=== PATIENT | female | born 1990 | race Caucasian/White ===

== ENCOUNTER → 2017-01-07 | Outpatient (CLI) | payer OTHER | LOC: M SMT 10:23 | PROVIDERS: ATTEND Specialist | DX: Z36 Encounter for antenatal screening of mother (principal) ==

== ENCOUNTER → 2017-01-13 | Outpatient (CLI) | payer OTHER ==
--- NOTE | 2017-01-13 16:54 | REP ---
Clinical: Anatomical evaluation. Comparison: None . Findings: Examination demonstrates a single live intrauterine in cephalic presentation. motion is identified by technologist. Placenta is noted anteriorly and grade Z zero without evidence for placenta previa or abruption. Amniotic fluid volume is normal. Cervix measures 3.2 cm in length and appears closed. No evidence for nuchal cord. Gestational age by current measurements 19 weeks 2 days with MARTHA 06/07/2017 . FHR equals 144 beats per minute. BPD 4.6 cm 19 weeks 6 days HC 16.8 19 weeks 3 days AC 14.3 19 weeks 5 days FL 3.0 19 weeks 2 days HL 3.1 20 weeks 0 days HC/AC ratio 1.17 Estimated weight 296 grams ( 52nd percentile). Anatomical assessment demonstrates normal structures including cranium, choroid plexus, cavum, cerebellum/posterior fossa, facial features, lungs, four-chamber heart/ventricular outflow tracts, diaphragm, stomach, cord insertion/three-vessel cord, kidneys/bladder, spine, and extremities. Impression: Single live intrauterine in cephalic presentation. Anatomical assessment is complete and normal. Signed by Brando Sheppard MD 01/13/2017 11:45 A
== END ==
LOC: M SMT 10:51
PROVIDERS: ATTEND Specialist
DX: Z34.82 Encounter for supervision of other normal pregnancy, second trimester (principal); Z36 Encounter for antenatal screening of mother; Z3A.19 19 weeks gestation of pregnancy

== ENCOUNTER → 2017-02-04 | Outpatient (CLI) | payer OTHER ==
[2017-02-04 14:25] LABS: FREE T4 1.07 NG/DL (0.76-1.46)
== END ==
LOC: M SMT 09:27
PROVIDERS: ATTEND Internal Medicine Endocrinology, Diabetes & Metabolism
DX: O99.281 Endocrine, nutritional and metabolic diseases complicating pregnancy, first trimester (principal)

== ENCOUNTER → 2017-03-15 | Outpatient (CLI) | payer OTHER ==
[2017-03-15 14:14] LABS: MEAN CORPUSCULAR HEMOGLOBIN 31.2 pg (27.0-33.0); MEAN CORPUSCULAR HGB CONC 34.2 g/dl (32.0-36.5); MEAN CORPUSCULAR VOLUME 91.3 fl (80.0-96.0); PLATELET COUNT, AUTOMATED 243 10^3/uL (150-450); RED CELL DISTRIBUTION WIDTH 11.8 % (11.5-14.5); WHITE BLOOD COUNT 8.5 10^3/uL (4.0-10.0)
== END ==
LOC: M SMT 09:27
PROVIDERS: ATTEND Obstetrics & Gynecology
DX: Z34.82 Encounter for supervision of other normal pregnancy, second trimester (principal); Z23 Encounter for immunization

== ENCOUNTER → 2017-03-31 | Outpatient (CLI) | payer OTHER ==
[2017-03-31 14:52] LABS: ALBUMIN 2.8 GM/DL (3.2-5.2); ALBUMIN/GLOBULIN RATIO 0.68 (1.00-1.93); ALKALINE PHOSPHATASE 145 U/L (45-117); ALT/SGPT 14 U/L (12-78); AST/SGOT 14 U/L (7-37); BILIRUBIN,DIRECT < 0.1 MG/DL (0.0-0.2); BILIRUBIN,TOTAL 0.3 MG/DL (0.2-1.0); FREE T4 1.18 NG/DL (0.76-1.46); TOTAL PROTEIN 6.9 GM/DL (6.4-8.2)
== END ==
LOC: M SMT 11:33
PROVIDERS: ATTEND Advanced Practice Midwife
DX: R21 Rash and other nonspecific skin eruption (principal); Z23 Encounter for immunization

== ENCOUNTER 2017-04-16 23:03 | Outpatient (CLI) | payer OTHER ==
[~2017-04-16] VITALS: Ht 165.1 cm; Wt 64.3 kg
[2017-04-16 23:18] VITALS: BP 134/84
[2017-04-16] MEDS ORDERED: PRENTAB9 PO (23:29)
[2017-04-16] MEDS ORDERED: LEVO75TA4 PO (23:29)
== END 2017-04-17 00:15 | disposition home or self-care (01) ==
LOC: M LDO 23:03
PROVIDERS: ATTEND Obstetrics & Gynecology
DX: O47.03 False labor before 37 completed weeks of gestation, third trimester (principal); Z3A.32 32 weeks gestation of pregnancy

== ENCOUNTER 2017-04-28 00:33 | Outpatient (CLI) | payer OTHER | END 2017-04-28 02:01 | disposition home or self-care (01) | LOC: M LDO 00:33 | DX: O47.03 False labor before 37 completed weeks of gestation, third trimester (principal); O99.283 Endocrine, nutritional and metabolic diseases complicating pregnancy, third trimester; E03.9 Hypothyroidism, unspecified; Z3A.33 33 weeks gestation of pregnancy; Z79.899 Other long term (current) drug therapy | CPT/HCPCS: 76815 ==

== ENCOUNTER 2017-05-16 19:33 | Inpatient (IN) | payer OTHER ==
[2017-05-16] MEDS: LR 1,000 ML IV ×2 (22:13→23:03)
[2017-05-16 22:22] LABS: HEMATOCRIT 37.1 % (36.0-47.0); HEMOGLOBIN 12.5 g/dl (12.0-16.0); MEAN CORPUSCULAR HEMOGLOBIN 28.9 pg (27.0-33.0); MEAN CORPUSCULAR HGB CONC 33.7 g/dl (32.0-36.5); MEAN CORPUSCULAR VOLUME 85.9 fl (80.0-96.0); PLATELET COUNT, AUTOMATED 227 10^3/uL (150-450); RED BLOOD COUNT 4.32 10^6/uL (4.00-5.40); RED CELL DISTRIBUTION WIDTH 11.4 % (11.5-14.5); WHITE BLOOD COUNT 14.3 10^3/uL (4.0-10.0)
[2017-05-16 22:41] LABS: AMPHETAMINES URINE REFLEX NEGATIVE (NEGATIVE); BARBITURATES URINE REFLEX NEGATIVE (NEGATIVE); BENZODIAZEPINES URINE REFLEX NEGATIVE (NEGATIVE); CANNABINOIDS URINE REFLEX NEGATIVE (NEGATIVE); COCAINE METABOLITE URINE REFLE NEGATIVE (NEGATIVE); METHADONE URINE REFLEX NEGATIVE (NEGATIVE); OPIATES URINE REFLEX NEGATIVE (NEGATIVE); PHENCYCLIDINE URINE REFLEX NEGATIVE (NEGATIVE)
[2017-05-16] MEDS: BICITRA 30ML SOLN UDC PO (23:15)
[2017-05-16] MEDS: CEFAZOLIN SOD 1 GM in APPROPRIATE DILUENT 1 EA IV (23:15)
[2017-05-16] MEDS ORDERED: MORPHINE PRES-FREE INJ 10 MG/10 ML VIAL (J2274) As Ordered (23:37)
[2017-05-16] MEDS ORDERED: OXYTOCIN INJ 10 UNITS/ML VIAL (J2590) As Ordered ×3 (23:38)
[2017-05-17] MEDS ORDERED: METOCLOPRAMIDE INJ 10MG/2ML VIAL (J2765) IV (00:07)
[2017-05-17] MEDS ORDERED: NALOXONE INJ 0.4 MG/1 ML VIAL (J2310) IV ×2 (00:07)
[2017-05-17] MEDS ORDERED: PHENYLephrine HCL 500 MCG/5 ML (100MCG/ML) SYRINGE (J2370) As Ordered (00:08)
[2017-05-17] MEDS ORDERED: ePHEDrine SULFATE 25 MG/5 ML(5MG/ML) SYRINGE As Ordered (00:10)
[2017-05-17] MEDS: LR 1,000 ML IV ×3 (00:53→08:07)
[2017-05-17] MEDS ORDERED: ONDANSETRON 4MG/2ML VIAL (J2405) IV (01:00)
[2017-05-17] MEDS ORDERED: fentaNYL 100 MCG/2 ML INJECTION (J3010) IV (01:00)
[2017-05-17] MEDS ORDERED: DOCUSATE SODIUM 100 MG CAP PO (01:00)
[2017-05-17] MEDS: OXYTOCIN DRIP 30 UNITS in APPROPRIATE DILUENT 1 EA IV (01:00)
[2017-05-17] MEDS ORDERED: KETOROLAC 30 MG/ML VIAL (J1885) IV (01:00)
[2017-05-17 08:00] LABS: HEPATITIS B SURFACE ANTIGEN NEGATIVE (NEGATIVE)
[2017-05-17] MEDS: PRENATAL VITAMINS CHEWABLE TABLET PO (08:07)
[2017-05-17] MEDS: KETOROLAC 30 MG/ML VIAL (J1885) IV ×3 (08:32→20:11)
[2017-05-17] MEDS: LEVOTHYROXINE 75MCG TABLET (0.075MG) PO (10:00)
[2017-05-17] MEDS ORDERED: SLF 3 ML SYR IV (11:30)
[2017-05-17] MEDS: NALBUPHINE HCL 10 MG/ML AMP (J2300) IV ×2 (14:27→20:11)
[2017-05-17] MEDS: SLF 3 ML SYR IV ×2 (14:36→20:12)
[2017-05-17] MEDS: PERCOCET 5MG/325MG TAB PO (20:12)
[2017-05-18] MEDS: KETOROLAC 30 MG/ML VIAL (J1885) IV (02:10)
[2017-05-18] MEDS: LEVOTHYROXINE 75MCG TABLET (0.075MG) PO (05:41)
[2017-05-18] MEDS: SLF 3 ML SYR IV (05:41)
[2017-05-18 07:17] LABS: HEMATOCRIT 21.2 % (36.0-47.0); MEAN CORPUSCULAR HGB CONC 33.5 g/dl (32.0-36.5); MEAN CORPUSCULAR VOLUME 86.5 fl (80.0-96.0); PLATELET COUNT, AUTOMATED 196 10^3/uL (150-450); RED BLOOD COUNT 2.45 10^6/uL (4.00-5.40); RED CELL DISTRIBUTION WIDTH 11.9 % (11.5-14.5); WHITE BLOOD COUNT 11.3 10^3/uL (4.0-10.0)
[2017-05-18 07:22] LABS: HEMOGLOBIN 7.1 g/dl (12.0-16.0)
[2017-05-18] MEDS: RHOGAM 300 MCG (1500 IU) INJ (J2790) IM (07:58)
[2017-05-18] MEDS: MEASLES,MUMPS,RUBELLA VACCINE INJ (MMR-II) (90707) SC (07:59)
[2017-05-18] MEDS: PRENATAL VITAMINS CHEWABLE TABLET PO (08:19)
[2017-05-18] MEDS: IBUPROFEN 800 MG TAB PO ×2 (10:22→18:43)
[2017-05-18] MEDS: PERCOCET 5MG/325MG TAB PO ×4 (10:23→21:28)
[2017-05-19] MEDS: IBUPROFEN 800 MG TAB PO ×2 (02:39→09:33)
[2017-05-19] MEDS: PERCOCET 5MG/325MG TAB PO ×3 (02:39→11:22)
[2017-05-19] MEDS: LEVOTHYROXINE 75MCG TABLET (0.075MG) PO (05:40)
[2017-05-19] MEDS: PRENATAL VITAMINS CHEWABLE TABLET PO (09:32)
== END 2017-05-19 11:45 | disposition home or self-care (01) | DRG 766 ==
LOC: M LDO 19:33 → M OBS 05-17 02:40 → M LDI 21:47
PROVIDERS: Specialist
PROC: 10D00Z1 Extraction of Products of Conception, Low, Open Approach (ICD-10-PCS; principal; 2017-05-16 23:51)
DX: O60.14X0 Preterm labor third trimester with preterm delivery third trimester, not applicable or unspecified (principal); Z3A.36 36 weeks gestation of pregnancy; O34.211 Maternal care for low transverse scar from previous cesarean delivery; Z37.0 Single live birth

== ENCOUNTER → 2017-05-26 | Outpatient (CLI) | payer OTHER ==
[2017-05-26 14:35] LABS: BASO # 0.1 10^3/uL (0.0-0.2); BASO % 0.6 % (0.0-1.0); EOS # 0.4 10^3/uL (0.0-0.50); EOS % 3.5 % (0.0-3.0); HEMATOCRIT 26.1 % (36.0-47.0); HEMOGLOBIN 8.4 g/dl (12.0-16.0); IMMATURE GRANULOCYTE # 0.2 10^3/uL (0-0); IMMATURE GRANULOCYTE % 2.3 % (0-0); LYMPH % 19.6 % (24.0-44.0); MEAN CORPUSCULAR HEMOGLOBIN 28.9 pg (27.0-33.0); MEAN CORPUSCULAR HGB CONC 32.2 g/dl (32.0-36.5); MEAN CORPUSCULAR VOLUME 89.7 fl (80.0-96.0); MONO # 0.8 10^3/uL (0.0-0.8); MONO % 8.2 % (0.0-5.0); NEUTROPHILS # 6.7 10^3/uL (1.8-7.7); NEUTROPHILS % 65.8 % (36.0-66.0); PLATELET COUNT, AUTOMATED 691 10^3/uL (150-450); RED BLOOD COUNT 2.91 10^6/uL (4.00-5.40); RED CELL DISTRIBUTION WIDTH 12.2 % (11.5-14.5); WHITE BLOOD COUNT 10.2 10^3/uL (4.0-10.0)
== END ==
LOC: M SMT 11:15
DX: D64.9 Anemia, unspecified (principal)
CPT/HCPCS: 85025

== ENCOUNTER → 2017-11-24 | Outpatient (CLI) | payer OTHER ==
[2017-11-24 13:08] LABS: BASO # 0.1 10^3/uL (0.0-0.2); BASO % 1.2 % (0.0-1.0); EOS # 0.5 10^3/uL (0.0-0.50); EOS % 6.7 % (0.0-3.0); HEMATOCRIT 40.6 % (36.0-47.0); HEMOGLOBIN 13.7 g/dl (12.0-15.5); IMMATURE GRANULOCYTE % 0.4 % (0-3.0); LYMPH # 2.4 10^3/uL (1.5-6.5); LYMPH % 31.8 % (24.0-44.0); MEAN CORPUSCULAR HEMOGLOBIN 29.6 pg (27.0-33.0); MEAN CORPUSCULAR HGB CONC 33.7 g/dl (32.0-36.5); MEAN CORPUSCULAR VOLUME 87.7 fl (80.0-96.0); MONO # 0.6 10^3/uL (0.0-0.8); MONO % 7.4 % (0.0-5.0); NEUTROPHILS # 3.9 10^3/uL (1.8-7.7); NEUTROPHILS % 52.5 % (36.0-66.0); PLATELET COUNT, AUTOMATED 266 10^3/uL (150-450); RED BLOOD COUNT 4.63 10^6/uL (4.00-5.40); RED CELL DISTRIBUTION WIDTH 12.6 % (11.5-14.5); WHITE BLOOD COUNT 7.5 10^3/uL (4.0-10.0)
[2017-11-24 13:33] LABS: COLLAGEN EPINEPHRINE 123 SECONDS (74-162)
[2017-11-24 14:10] LABS: ALBUMIN 4.3 GM/DL (3.2-5.2); ALKALINE PHOSPHATASE 98 U/L (45-117); ALT/SGPT 18 U/L (12-78); ANION GAP 5 MEQ/L (8-16); AST/SGOT 12 U/L (7-37); BILIRUBIN,TOTAL 0.3 MG/DL (0.2-1.0); BLOOD UREA NITROGEN 8 MG/DL (7-18); CALCIUM LEVEL 9.4 MG/DL (8.5-10.1); CARBON DIOXIDE LEVEL 29 MEQ/L (21-32); CHLORIDE LEVEL 106 MEQ/L (98-107); CREATININE FOR GFR 0.84 MG/DL (0.55-1.30); FREE T4 0.92 NG/DL (0.76-1.46); GLOMERULAR FILTRATION RATE > 60.0 (>60); GLUCOSE, FASTING 86 MG/DL (70-100); POTASSIUM SERUM 5.1 MEQ/L (3.5-5.1); SODIUM LEVEL 140 MEQ/L (136-145); TOTAL PROTEIN 8.2 GM/DL (6.4-8.2)
== END ==
LOC: M SMT 11:45
DX: E06.3 Autoimmune thyroiditis (principal); R53.83 Other fatigue; R23.3 Spontaneous ecchymoses
CPT/HCPCS: 84443

== ENCOUNTER → 2018-04-05 | Outpatient (CLI) | payer OTHER ==
[2018-04-05 19:19] LABS: BASO # 0.1 10^3/uL (0.0-0.2); BASO % 1.2 % (0.0-1.0); EOS # 0.3 10^3/uL (0.0-0.50); EOS % 4.3 % (0.0-3.0); HEMATOCRIT 40.8 % (36.0-47.0); HEMOGLOBIN 13.3 g/dl (12.0-15.5); IMMATURE GRANULOCYTE % 0.3 % (0-3.0); LYMPH # 1.9 10^3/uL (1.5-6.5); LYMPH % 27.1 % (24.0-44.0); MEAN CORPUSCULAR HEMOGLOBIN 29.3 pg (27.0-33.0); MEAN CORPUSCULAR HGB CONC 32.6 g/dl (32.0-36.5); MEAN CORPUSCULAR VOLUME 89.9 fl (80.0-96.0); MONO # 0.6 10^3/uL (0.0-0.8); MONO % 8.2 % (0.0-5.0); NEUTROPHILS % 58.9 % (36.0-66.0); PLATELET COUNT, AUTOMATED 242 10^3/uL (150-450); RED BLOOD COUNT 4.54 10^6/uL (4.00-5.40); RED CELL DISTRIBUTION WIDTH 11.9 % (11.5-14.5); WHITE BLOOD COUNT 6.8 10^3/uL (4.0-10.0)
[2018-04-05 19:23] LABS: FREE T4 1.09 NG/DL (0.76-1.46)
[2018-04-05 21:28] LABS: CHLAMYDIA DNA AMPLIFICATION NEGATIVE (NEGATIVE); GC DNA AMPLIFICATION NEGATIVE (NEGATIVE)
[2018-04-06 10:16] LABS: RUBELLA IgG QUALITATIVE IMMUNE (IMMUNE)
[2018-04-06 10:18] LABS: HBsAg Prenatal NEGATIVE (NEGATIVE)
[2018-04-06 10:46] LABS: HEPATITIS C VIRUS ABY INDEX 0.1 INDEX (<0.8)
[2018-04-06 10:47] LABS: HIV 1&2 SCREEN CENTAUR NEGATIVE (NEGATIVE)
== END ==
LOC: M SMT 10:20
DX: Z36.89 Encounter for other specified antenatal screening (principal)
CPT/HCPCS: 84443

== ENCOUNTER → 2018-04-22 | Outpatient (CLI) | payer OTHER ==
[~2018-04-22] MED LIST: LEVO75TA4 PO; MOTR200T44 PO; OXYC1TAB23 PO; PRENTAB9 PO
--- NOTE | 2018-04-22 09:50 | REP ---
OBSTETRIC SONOGRAPHY: HISTORY: Left lower quadrant pain. Evaluate gestation and ovaries. FINDINGS: Scanning demonstrates a viable single intrauterine gestation in a cephalic lie. heart rate is recorded at 171 beats per minute. [place]-rump length is 42 mm corresponding with a gestational age estimate of 11 weeks 1 day. No subchorionic hemorrhage is seen. Placenta is fundal without evidence of previa. There is a 2.0 cm corpus luteal cyst in the maternal left ovary. Maternal right ovary is unremarkable. No free fluid. IMPRESSION: Viable single intrauterine gestation at 11 weeks 1 day by crown-rump length. MARTHA by today's sonography, November 10, 2018. No significant extrauterine abnormality. No complication identified. Electronically Signed by Wolfgang Damon MD 04/22/2018 10:18 A
== END ==
LOC: M LAB 07:41
PROVIDERS: ATTEND Emergency Medicine
DX: O26.891 Other specified pregnancy related conditions, first trimester (principal); R10.32 Left lower quadrant pain; Z3A.11 11 weeks gestation of pregnancy

== ENCOUNTER → 2018-06-27 | Outpatient (CLI) | payer OTHER ==
--- NOTE | 2018-06-27 09:59 | REP ---
Clinical: Anatomical evaluation. Comparison: None . Findings: Examination demonstrates a single live intrauterine in cephalic presentation. motion is identified by technologist. Placenta is noted posterior and grade grade 1 without evidence for placenta previa or abruption. Amniotic fluid volume is normal. Cervix measures 3.1 cm in length and appears closed. No evidence for nuchal cord. Gestational age by LMP 20 weeks 5 days with MARTHA 11/09/2018 . Gestational age by current measurements 19 weeks 6 days with MARTHA 11/15/2018 . FHR equals 136 beats per minute. BPD 4.8 cm 20 weeks 3 days HC 17.6 cm 20 weeks 0 days AC 14.3 cm 19 weeks 5 days FL 3.2 cm 20 weeks 0 days HL 3.0 cm 19 weeks 6 days HC/AC ratio 1.23 Estimated weight 317 grams (19th percentile). Anatomical assessment demonstrates normal structures including cranium, choroid plexus, cavum, cerebellum/posterior fossa, facial features, lungs, four-chamber heart/ventricular outflow tracts, diaphragm, stomach, cord insertion/three-vessel cord, kidneys/bladder, spine, and extremities. Impression: Single live intrauterine in cephalic presentation demonstrating relatively appropriate interval growth. Estimated weight normal. Anatomical assessment is complete and normal. Electronically Signed by Brando Sheppard MD 06/27/2018 09:51 A
== END ==
LOC: M SMT 08:29
PROVIDERS: ATTEND Advanced Practice Midwife
DX: O34.211 Maternal care for low transverse scar from previous cesarean delivery (principal); Z3A.20 20 weeks gestation of pregnancy

== ENCOUNTER → 2018-08-16 | Outpatient (CLI) | payer OTHER ==
[2018-08-16 14:03] LABS: BASO # 0.1 10^3/uL (0.0-0.2); BASO % 0.7 % (0.0-1.0); EOS # 0.2 10^3/uL (0.0-0.50); EOS % 2.6 % (0.0-3.0); HEMATOCRIT 36.8 % (36.0-47.0); HEMOGLOBIN 12.3 g/dl (12.0-15.5); LYMPH # 1.5 10^3/uL (1.5-6.5); LYMPH % 18.2 % (24.0-44.0); MEAN CORPUSCULAR HEMOGLOBIN 30.4 pg (27.0-33.0); MEAN CORPUSCULAR HGB CONC 33.4 g/dl (32.0-36.5); MEAN CORPUSCULAR VOLUME 90.9 fl (80.0-96.0); MONO # 0.6 10^3/uL (0.0-0.8); MONO % 7.2 % (0.0-5.0); NEUTROPHILS # 5.9 10^3/uL (1.8-7.7); NEUTROPHILS % 70.2 % (36.0-66.0); PLATELET COUNT, AUTOMATED 291 10^3/uL (150-450); RED BLOOD COUNT 4.05 10^6/uL (4.00-5.40); WHITE BLOOD COUNT 8.4 10^3/uL (4.0-10.0)
[2018-08-16 14:13] LABS: FREE T4 0.99 NG/DL (0.76-1.46); THYROID STIMULATING HORMONE 1.85 uIU/ML (0.358-3.740)
== END ==
LOC: M SMT 09:04
PROVIDERS: ATTEND Specialist
DX: O09.212 Supervision of pregnancy with history of pre-term labor, second trimester (principal)

== ENCOUNTER 2018-09-23 17:43 | Outpatient (CLI) | payer OTHER ==
[~2018-09-23] VITALS: Ht 167.6 cm; Wt 61.6 kg
[2018-09-23 17:56] VITALS: BP 121/81
[2018-09-23] MEDS ORDERED: TERBUTALINE SULFATE 1 MG/ML VIAL (J3105) SC ONE ×2 (18:30→22:00)
[2018-09-23] MEDS: LR 1,000 ML IV SCH ×2 (18:44→22:03)
--- NOTE | 2018-09-23 18:45 | IPNPDOC ---
Text Note Date of Service The patient was seen on 09/23/18. NOTE Outpatient 27yo MARTHA 11/09/18. Presents @ 33w2d with complaints of UC though the day despite rest, hydration and position change. hx significant for previous PT delivery x 2 via . Denies bleeding. Appears mildly uncomfortable. UC 4-8 minutes apart FH 145, Cat I SSE cervix visually LTC, bled readily to touch from speculum. No evidence of prior bleeding. Unable to obtain FFN GBS obtained SVE LTC, thinning. Will obtain labs, sono. IV hydration and consult physician with results. VS,Fishbone, I+O VS, Fishbone, I+O Vital Signs Date Time Temp Pulse Resp B/P (MAP) Pulse Ox O2 Delivery O2 Flow Rate FiO2 09/23/18 17:56 97.5 78 18 121/81 (94) Johanne Anders CNM September 23, 2018 18:45
[2018-09-23 18:48] VITALS: BP 131/82
[2018-09-23 19:00] LABS: BASO % 0.4 % (0.0-1.0); EOS # 0.2 10^3/uL (0.0-0.50); EOS % 1.4 % (0.0-3.0); HEMATOCRIT 33.9 % (36.0-47.0); HEMOGLOBIN 11.7 g/dl (12.0-15.5); LYMPH # 2.5 10^3/uL (1.5-6.5); LYMPH % 21.7 % (24.0-44.0); MEAN CORPUSCULAR HEMOGLOBIN 30.4 pg (27.0-33.0); MEAN CORPUSCULAR HGB CONC 34.5 g/dl (32.0-36.5); MEAN CORPUSCULAR VOLUME 88.1 fl (80.0-96.0); MONO # 0.8 10^3/uL (0.0-0.8); NEUTROPHILS # 7.8 10^3/uL (1.8-7.7); NEUTROPHILS % 68.8 % (36.0-66.0); PLATELET COUNT, AUTOMATED 209 10^3/uL (150-450); RED BLOOD COUNT 3.85 10^6/uL (4.00-5.40); WHITE BLOOD COUNT 11.4 10^3/uL (4.0-10.0)
[2018-09-23 19:15] LABS: APPEARANCE, URINE CLOUDY (CLEAR); BACTERIA, URINE AUTO 2+ (NEGATIVE); BILIRUBIN, URINE AUTO NEGATIVE (NEGATIVE); BLOOD, URINE BLOOD NEGATIVE (NEGATIVE); COLOR, URINE YELLOW (YELLOW); GLUCOSE, URINE (UA) AUTO NEGATIVE (NEGATIVE); KETONE, URINE AUTO NEGATIVE (NEGATIVE); LEUKOCYTE ESTERASE, URINE AUTO 2+ (NEGATIVE); MUCUS, URINE SMALL (NEGATIVE); NITRITE, URINE AUTO NEGATIVE (NEGATIVE); PROTEIN, URINE AUTO NEGATIVE (NEGATIVE); RBC, URINE AUTO 4 /HPF (0-3); SPECIFIC GRAVITY URINE AUTO 1.012 (1.002-1.035); SQUAMOUS EPITHELIAL CELL UR AU 30 /HPF (0-6); UROBILINOGEN, URINE AUTO 0.2 mg/dL (0.0-2.0); WBC, URINE AUTO 15 /HPF (0-3)
[2018-09-23 19:20] LABS: INR 0.91; PROTHROMBIN TIME 12.3 SECONDS (12.1-14.4)
[2018-09-23 19:21] LABS: PARTIAL THROMBOPLASTIN TIME 24.3 SECONDS (25.4-37.6)
--- NOTE | 2018-09-23 19:48 | REPVR ---
EXAM: US , Limited EXAM DATE/TIME: 09/23/2018 7:15 PM CLINICAL HISTORY: 27 years old, female; Signs and symptoms; Lmp or gestational age (in weeks): 33w2d; Labor and delivery abnormalities; Pre-term labor; Without delivery; ; Additional info: Threat ptl TECHNIQUE: Imaging protocol: Real-time ultrasound of the maternal uterus with image documentation. Exam focused on the clinical indication. COMPARISON: US OBS SINGLE GEST 06/27/2018 8:39 AM FINDINGS: GESTATION: Gestation: Single fetus. Limited anatomic survey unremarkable. heart rate 147 beats per minute. Presentation: Vertex presentation. Amniotic fluid: Amniotic fluid volume within normal limits. YEMI 13.6 cm. DOPPLER: Umbilical artery Doppler: Umbilical cord Doppler demonstrates peak systolic velocity of 56.3 cm/s, end-diastolic velocity of 21.2 cm/s with a resistive index of 0.62. Three vessel cord. MATERNAL: Cervix: Cervix measures 4.4 cm. No bulging membranes or funneling demonstrated. IMPRESSION: Normal cervix. No bulging membranes or funneling demonstrated. Normal amniotic fluid volume. Electronically signed by: Bobby Barnes On 09/23/2018 19:48:23 PM
[2018-09-23] MEDS ORDERED: AMPICILLIN SOD 2 GM in D5W MINI-BAG PLUS 100 ML IV ONE (20:00)
[2018-09-23 20:03] VITALS: BP 128/70
--- NOTE | 2018-09-23 20:21 | IPNPDOC ---
Text Note Date of Service The patient was seen on 09/23/18. NOTE Reviewed pt status with Dr Sheldon Cat I tracing, irregular UC Sono showing YEMI 13.6 with cervical length 4.4, no funneling Continue IV hydration, IV abx for UTI Betamethasone IM x 2 doses Observe overnight VS,Fishbone, I+O VS, Fishbone, I+O Laboratory Tests 09/23/18 18:40 Red Blood Count 3.85 L, Mean Corpuscular Volume 88.1, Mean Corpuscular Hemoglobin 30.4, Mean Corpuscular Hemoglobin Concent 34.5, Red Cell Distribution Width 11.9, Neutrophils (%) (Auto) 68.8 H, Lymphocytes (%) (Auto) 21.7 L, Monocytes (%) (Auto) 7.0 H, Eosinophils (%) (Auto) 1.4, Basophils (%) (Auto) 0.4, Neutrophils # (Auto) 7.8 H, Lymphocytes # (Auto) 2.5, Monocytes # (Auto) 0.8, Eosinophils # (Auto) 0.2, Basophils # (Auto) 0.0 Vital Signs Date Time Temp Pulse Resp B/P (MAP) Pulse Ox O2 Delivery O2 Flow Rate FiO2 09/23/18 18:48 81 18 131/82 (98) 09/23/18 17:56 97.5 Johanne Anders CNM September 23, 2018 20:21
[2018-09-23] MEDS ORDERED: BETAMETHASONE SOLUSPAN 6MG/ML INJ 5ML (J0702) IM SCH (21:00)
[2018-09-23 21:58] VITALS: BP 127/75
[2018-09-23] MEDS ORDERED: BUTORPHANOL 2 MG/ML INJ (J0595) IV ONE (23:00)
[2018-09-23] MEDS ORDERED: PROMETHAZINE INJ 25 MG/ML VIAL (J2550) IV ONE (23:00)
--- NOTE | 2018-09-23 23:01 | IPNPDOC ---
Text Note Date of Service The patient was seen on 09/23/18. NOTE Continues to be uncomfortable. FH 145, Cat I UC irregular SVE unchanged, moderate texture, LTC, presenting part high Stadol/phenergan for sedation and rest. Reassess with increased complaints. VS,Fishbone, I+O VS, Fishbone, I+O Laboratory Tests 09/23/18 18:40 Red Blood Count 3.85 L, Mean Corpuscular Volume 88.1, Mean Corpuscular Hemoglobin 30.4, Mean Corpuscular Hemoglobin Concent 34.5, Red Cell Distribution Width 11.9, Neutrophils (%) (Auto) 68.8 H, Lymphocytes (%) (Auto) 21.7 L, Monocytes (%) (Auto) 7.0 H, Eosinophils (%) (Auto) 1.4, Basophils (%) (Auto) 0.4, Neutrophils # (Auto) 7.8 H, Lymphocytes # (Auto) 2.5, Monocytes # (Auto) 0.8, Eosinophils # (Auto) 0.2, Basophils # (Auto) 0.0 Vital Signs Date Time Temp Pulse Resp B/P (MAP) Pulse Ox O2 Delivery O2 Flow Rate FiO2 09/23/18 20:03 85 18 128/70 (89) 09/23/18 17:56 97.5 Johanne Anders CNM September 23, 2018 23:01
[2018-09-24 00:51] VITALS: BP 122/60
[2018-09-24] MEDS: AMPICILLIN SOD 2 GM in D5W MINI-BAG PLUS 100 ML IV SCH ×2 (01:58→08:28)
[2018-09-24] MEDS: LR 1,000 ML IV SCH (03:46)
[2018-09-24 06:43] VITALS: BP 130/70
[2018-09-24 07:27] VITALS: BP 115/69
== END 2018-09-24 10:45 | disposition home or self-care (01) ==
LOC: M LDO 17:43
PROVIDERS: ATTEND Advanced Practice Midwife
DX: O62.2 Other uterine inertia (principal); O26.893 Other specified pregnancy related conditions, third trimester; R10.30 Lower abdominal pain, unspecified; O26.853 Spotting complicating pregnancy, third trimester; O47.03 False labor before 37 completed weeks of gestation, third trimester; Z3A.33 33 weeks gestation of pregnancy
CPT/HCPCS: 59025; 76815; 76817; 81001; 85025; 85384; 85460; 85610; 85730; 87081; 87086; 96361; 96365; 96366; 96372; 96375; G0378; G0463; J0595; J0702; J3105

== ENCOUNTER 2018-09-24 20:23 | Outpatient (CLI) | payer OTHER ==
[~2018-09-24] VITALS: Ht 165.1 cm; Wt 63.3 kg
[2018-09-24 20:47] VITALS: BP 125/69
[2018-09-24] MEDS ORDERED: BETAMETHASONE SOLUSPAN 6MG/ML INJ 5ML (J0702) IM ONE (21:00)
[2018-09-24 21:22] LABS: HEMATOCRIT 30.1 % (36.0-47.0); HEMOGLOBIN 10.3 g/dl (12.0-15.5); MEAN CORPUSCULAR HGB CONC 34.2 g/dl (32.0-36.5); MEAN CORPUSCULAR VOLUME 87.8 fl (80.0-96.0); PLATELET COUNT, AUTOMATED 190 10^3/uL (150-450); RED BLOOD COUNT 3.43 10^6/uL (4.00-5.40); WHITE BLOOD COUNT 11.5 10^3/uL (4.0-10.0)
[2018-09-24 23:43] VITALS: BP 117/65
--- NOTE | 2018-09-25 00:57 | NUR ---
L&D Triage note: S: 27yo at 33w5d who initially presented for repeat betamethasone. She was seen overnight with concerns for PTL. her cervix was closed with 4cm cervical length. She was sent home this am and returned for repeat dose of steroid. On presentation she reported increase vaginal bleeding since yesterday. Denies abd pain, but has continued to have contractions. Reports active movement. O: vss, AF cat 1 tracing with moderate variability FHR 130s with irregular contractions gen: well appearing abd: soft, nttp cbc 11.5>10.3/30.1<190, fibrinogen 407, KB neg. Values slightly lower from yesterday A/P: 27yo at 33w5d with vaginal bleeding reassuring status -plan to continue to monitor overnight Mouna Sheldon MD
[2018-09-25] MEDS ORDERED: ACETAMINOPHEN 500 MG TAB PO PRN (05:15)
[2018-09-25 05:20] VITALS: BP 137/71
[2018-09-25 07:12] VITALS: BP 116/80
[2018-09-25] MEDS ORDERED: NITROFURANTOIN (MACROBID) 100 MG CAP PO ONE (09:00)
--- NOTE | 2018-09-25 09:52 | REP ---
Clinical: Vaginal bleeding. well-being Comparison: 09/23/2018 . Findings: Examination demonstrates a single live intrauterine in cephalic presentation. motion is identified by technologist. Placenta is noted posterior/left lateral and grade III without evidence for placenta previa or abruption. Amniotic fluid volume is normal. Cervix measures 3.5 cm in length and appears closed. Nuchal cord cannot be excluded. Gestational age by LMP 33 weeks 4 days with MARTHA 11/09/2018 . Gestational age by current measurements 32 weeks 2 days with MARTHA 11/18/2018 . FHR equals 133 beats per minute. BPD 8.3 cm 33 weeks 3 days HC 29.8 cm 33 weeks 0 days AC 28.6 cm 32 weeks 4 days FL 6.0 cm 31 weeks 2 days HL 5.4 cm 31 weeks 3 days HC/AC ratio 1.04 Estimated weight 1945 grams ( 22nd percentile). Amniotic fluid index: 10.6 cm (8.2 - 24.7) Umbilical cord SD ratio: 2.32 Biophysical profile score equals 8/8 Impression: 1. Single live advanced gestation in cephalic presentation demonstrating appropriate interval growth. 2. Nuchal cord cannot be excluded. 3. Biophysical profile score and amniotic fluid volume normal. Electronically Signed by Brando Sheppard MD 09/25/2018 09:43 A
--- NOTE | 2018-09-25 11:26 | NUR ---
L&D Triage note: -Watched overnight with no further bleeding. Has continued to have irregular contractions. Growth u/s 22%, 8BPP cat 1 tracing with moderate variability FHR 130s with irregular contractions gen: well appearing abd: soft, nttp cx: long/closed A/P: 27yo at 33w5d with vaginal bleeding and contraction, currently stable reassuring status -d/c home with f/u Wednesday -PTL precautions and FKCs Mouna Sheldon MD
== END 2018-09-25 11:20 | disposition home or self-care (01) ==
LOC: M LDO 20:23
PROVIDERS: ATTEND Obstetrics & Gynecology
DX: O34.63 Maternal care for abnormality of vagina, third trimester (principal); O47.03 False labor before 37 completed weeks of gestation, third trimester; Z3A.33 33 weeks gestation of pregnancy
CPT/HCPCS: 36415; 59025; 76816; 76819; 76820; 85027; 85384; 85460; 96372; G0378; G0463; J0702

== ENCOUNTER 2018-09-28 10:30 | Inpatient (IN) | payer OTHER ==
[~2018-09-28] VITALS: Ht 165.1 cm; Wt 62.0 kg
[2018-09-28] VITALS (12 sets, daily range): BP systolic 97–123; BP diastolic 56–77
[2018-09-28 11:36] LABS: HEMATOCRIT 36.2 % (36.0-47.0); HEMOGLOBIN 12.4 g/dl (12.0-15.5); MEAN CORPUSCULAR HEMOGLOBIN 30.5 pg (27.0-33.0); MEAN CORPUSCULAR HGB CONC 34.3 g/dl (32.0-36.5); MEAN CORPUSCULAR VOLUME 89.2 fl (80.0-96.0); PLATELET COUNT, AUTOMATED 202 10^3/uL (150-450); RED BLOOD COUNT 4.06 10^6/uL (4.00-5.40); WHITE BLOOD COUNT 9.3 10^3/uL (4.0-10.0)
[2018-09-28] MEDS: LR 1,000 ML IV SCH (13:00)
[2018-09-28] MEDS ORDERED: MACR100C43 PO (14:30)
[2018-09-28] MEDS ORDERED: PROMETHAZINE INJ 25 MG/ML VIAL (J2550) IV PRN (20:30)
[2018-09-28] MEDS ORDERED: BUTORPHANOL 2 MG/ML INJ (J0595) IV ONE (20:30)
[2018-09-28] MEDS: NITROFURANTOIN (MACROBID) 100 MG CAP PO SCH (21:05)
[2018-09-29] VITALS (9 sets, daily range): BP systolic 108–128; BP diastolic 63–78
[2018-09-29] MEDS: LR 1,000 ML IV SCH ×3 (03:15→22:06)
--- NOTE | 2018-09-29 05:17 | HPE ---
DATE OF ADMISSION: 09/28/2018 REASON FOR ADMISSION: Chronic abruption. HISTORY OF PRESENT ILLNESS: Ms. Estrada is a 19-year-old, 3, para 2, who presents at 34 weeks, 0 days estimated gestational age by last menstrual period confirmed by first trimester ultrasound with vaginal bleeding. She was seen over this weekend for contractions along with vaginal bleeding. She was monitored for several days. She was provided a course steroids for lung immaturity. Upon her presentation today, she presented to the office with complaints of bright red bleeding. She states that this blood has continued throughout. She also reports some uterine contractions along with uterine tenderness throughout the day. She was evaluated in our office and was noted to have bright red bleeding, some tenderness along the fundus and this was at rest and she was sent to labor and delivery for further evaluation. 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 PAST SURGICAL HISTORY: 1. She has had two sections. 2. Cholecystectomy. 3. Oral surgery. PAST OBSTETRICAL HISTORY: She is A 3, para 2. She has had two vaginal deliveries, both at 36 weeks. MEDICATIONS: Includes M[place]ana, vitamins, levothyroxine and currently on Macrobid for urinary tract infection (UTI). ALLERGIES: She has no known drug allergies. SOCIAL HISTORY: She denies any alcohol, tobacco or drug use during . PHYSICAL EXAMINATION: Her vital signs are stable. She is afebrile. She had a category 1 heart tracing with contractions approximately every 3 minutes. Her lungs are clear to auscultation bilaterally. Cardiovascular: Heart regular rate and rhythm. Her abdomen is gravid, slightly tender to palpation. Her cervix was examined in the office, was long and closed. LABORATORY: Blood type is A+. Antibody screen is negative. Rubella is immune. RPR is nonreactive. Hepatitis surface B antigen is negative. HIV is negative. Hepatitis C is nonreactive. Chlamydia and gonorrhea screens are negative. She had a normal one hour Glucola. Her Group B streptococcus (GBS) negative. ASSESSMENT: 1. Ms. Estrada is a 27-year-old, gravid 3, para 2 with vaginal bleeding, contractions with concern for possible abruption, likely stable chronic abruption. 2. History of two prior sections. 3. Reassuring status. PLAN: 1. Admit to labor and delivery. Will obtain complete blood count (CBC), RPR, type and screen, coags. 2. Continuous monitoring. 3. Will continue to evaluate. If presents as unstable, will proceed for section.
[2018-09-29 08:37] LABS: HEMATOCRIT 33.9 % (36.0-47.0); HEMOGLOBIN 11.4 g/dl (12.0-15.5); MEAN CORPUSCULAR HEMOGLOBIN 30.6 pg (27.0-33.0); MEAN CORPUSCULAR HGB CONC 33.6 g/dl (32.0-36.5); MEAN CORPUSCULAR VOLUME 90.9 fl (80.0-96.0); PLATELET COUNT, AUTOMATED 192 10^3/uL (150-450); RED BLOOD COUNT 3.73 10^6/uL (4.00-5.40); WHITE BLOOD COUNT 9.3 10^3/uL (4.0-10.0)
[2018-09-29] MEDS ORDERED: BICITRA 30ML SOLN UDC PO ONE (09:45)
[2018-09-29] MEDS ORDERED: ONDANSETRON 4MG/2ML VIAL (J2405) IV SCH (10:00)
[2018-09-29 10:09] LABS: INR 0.91; PROTHROMBIN TIME 12.3 SECONDS (12.1-14.4)
[2018-09-29 10:10] LABS: PARTIAL THROMBOPLASTIN TIME 22.9 SECONDS (25.4-37.6)
[2018-09-29] MEDS: NITROFURANTOIN (MACROBID) 100 MG CAP PO SCH (10:10)
--- NOTE | 2018-09-29 12:20 | NUR ---
L&D Note: -Overnight, Mrs Estrada has continue to pass clots and had spotting. She has continued to have abd pain and contractions. She had requested something for pain. vss, AF cat tracing with FHR 140s, moderate variability and spontaneous acceleration with no decelerations gen: well appearing, NAD abd: gravid, slight tenderness cx: deferred I discussed concerns for clinical placenta abruption. Condition currently guarded with contractions, abdominal pain and bleeding. Discussed plan of care to proceed with non-emergent c/s. All questions answer. Mouna Sheldon MD
[2018-09-29] MEDS ORDERED: OXYTOCIN INJ 10 UNITS/ML VIAL (J2590) As Ordered ONE (14:37)
[2018-09-29] MEDS ORDERED: MORPHINE PRES-FREE INJ 10 MG/10 ML VIAL (J2274) As Ordered ONE (14:38)
[2018-09-29] MEDS ORDERED: BUPIVACAINE/DEXTROSE 0.75% 2 ML AMP As Ordered ONE (14:43)
[2018-09-29] MEDS ORDERED: OXYTOCIN DRIP 30 UNITS in APPROPRIATE DILUENT 1 EA IV SCH (15:50)
[2018-09-29] MEDS ORDERED: PERCOCET 5MG/325MG TAB PO PRN (16:00)
[2018-09-29] MEDS ORDERED: MEASLES,MUMPS,RUBELLA VACCINE INJ (MMR-II) (90707) SC SCH (16:00)
[2018-09-29] MEDS ORDERED: DOCUSATE SODIUM 100 MG CAP PO PRN (16:00)
[2018-09-29] MEDS ORDERED: RHOGAM 300 MCG (1500 IU) INJ (J2790) IM SCH (16:00)
[2018-09-29] MEDS ORDERED: MOM 30ML SUSPENSION UDC PO PRN (16:00)
[2018-09-29] MEDS ORDERED: PROMETHAZINE 25 MG TAB PO PRN (16:00)
[2018-09-29] MEDS: KETOROLAC 30 MG/ML VIAL (J1885) IV SCH ×2 (16:10→22:01)
[2018-09-29] MEDS ORDERED: KETOROLAC 30 MG/ML VIAL (J1885) As Ordered ONE (16:10)
[2018-09-29] MEDS ORDERED: OXYTOCIN 30 UNITS IN 0.9% NaCl 500ML IV BAG (J2590) As Ordered ONE (16:19)
[2018-09-30] MEDS: NALBUPHINE HCL 10 MG/ML AMP (J2300) IV PRN ×2 (00:09→07:41)
[2018-09-30 01:24] VITALS: BP 117/79
[2018-09-30] MEDS: KETOROLAC 30 MG/ML VIAL (J1885) IV SCH ×2 (03:44→09:10)
[2018-09-30 06:22] VITALS: BP 123/80
[2018-09-30 06:56] LABS: HEMATOCRIT 35.6 % (36.0-47.0); MEAN CORPUSCULAR HEMOGLOBIN 30.5 pg (27.0-33.0); MEAN CORPUSCULAR HGB CONC 33.7 g/dl (32.0-36.5); MEAN CORPUSCULAR VOLUME 90.6 fl (80.0-96.0); PLATELET COUNT, AUTOMATED 205 10^3/uL (150-450); RED BLOOD COUNT 3.93 10^6/uL (4.00-5.40); WHITE BLOOD COUNT 13.1 10^3/uL (4.0-10.0)
[2018-09-30] MEDS: PRENATAL VITAMINS CHEWABLE TABLET PO SCH (07:41)
[2018-09-30] MEDS: LR 1,000 ML IV SCH (07:42)
--- NOTE | 2018-09-30 08:12 | NUR ---
POD# 1 S: Doing well w/o complaints. +voids, +ambulation and pain well controlled O: vss, AF gen: well appearing abd: soft, nttp ff@U incision: dressed ext: neg calf tenderness A/P: POD # 1 s/p repeat c/s for placenta abruption, recovering in stable condition -continue routine care Mouna Sheldon MD
[2018-09-30] MEDS ORDERED: OXYC1TAB23 PO (08:16)
--- NOTE | 2018-09-30 08:22 | RO ---
DATE OF OPERATION: 09/29/2018 PREOPERATIVE DIAGNOSIS: 34 weeks chronic abruption, labor, prior (C) section times two. POSTOPERATIVE DIAGNOSIS: 34 weeks chronic abruption, labor, prior section times two. PROCEDURE: Repeat low transverse section. SURGEON: Jose Vance MD GALLERY MANAGER: Mouna Sheldon MD ANESTHESIA: Spinal. ESTIMATED BLOOD LOSS: 500 mL. URINE OUTPUT: 100 mL. FINDINGS: 4 pound 3 ounce (1902 gram) female, score 7 and 8, vertex. Normal uterus, fallopian tubes, and ovaries. OPERATIVE SUMMARY: The patient was taken to the operating room where spinal anesthesia was induced. She was prepped and draped in sterile fashion in the supine position. A Garcia catheter was placed. A Pfannenstiel skin incision was made with the scalpel and carried through to the underlying fascia. The fascia was nicked and extended, and the fascia was dissected off the rectus muscles. Peritoneal cavity was entered. A curvilinear incision was made in the lower uterine segment until clear fluid was noted. This was extended manually. The infant was delivered from the vertex position without difficulty. The cord was doubly clamped and cut. The infant was handed off to the awaiting manager sourcing. The placenta was expressed. A small placental abruption was noted through the mid portion of the placenta with a moderate sized clot behind it. The uterus was exteriorized and cleared of clots and debris. The uterine incision was closed with #0 Vicryl in a running locked fashion. A second imbricating layer of #0 Vicryl was placed. The uterus was placed back in the abdominal cavity. The pericolic gutters were cleared. The peritoneum was closed with #2-0 Vicryl in a running fashion. The fascia was closed with #0 Vicryl. Deep layer was irrigated and closed with #3-0 chromic. The skin was closed with #4-0 Monocryl subcuticular sutures. Sponge, instrument and needle counts were correct. Mouna Sheldon MD assisted with all aspects of procedure from beginning to end. He assisted with creation of all layers of the incision. He assisted with expulsion of the fetus and closure of all subsequent layers. He was integral to the procedure.
[2018-09-30] MEDS: PERCOCET 5MG/325MG TAB PO PRN ×2 (13:53→20:10)
[2018-09-30 14:00] VITALS: BP 122/73
[2018-09-30] MEDS: IBUPROFEN 800 MG TAB PO SCH (17:43)
[2018-09-30 18:00] VITALS: BP 128/72
[2018-09-30 22:07] VITALS: BP 131/76
[2018-10-01 02:09] VITALS: BP 125/80
[2018-10-01] MEDS: IBUPROFEN 800 MG TAB PO SCH ×3 (02:14→17:32)
[2018-10-01] MEDS: PERCOCET 5MG/325MG TAB PO PRN ×4 (05:15→21:42)
[2018-10-01 06:35] VITALS: BP 119/68
[2018-10-01] MEDS: PRENATAL VITAMINS CHEWABLE TABLET PO SCH (09:45)
[2018-10-01 10:00] VITALS: BP 127/59
--- NOTE | 2018-10-01 12:43 | NUR ---
POD# 2 S: Doing well w/o complaints. +voids, +ambulation and pain well controlled O: vss, AF gen: well appearing abd: soft, nttp ff@U incision: dressed ext: neg calf tenderness A/P: POD # 2 s/p repeat c/s for placenta abruption, recovering in stable condition -continue routine care -anticipate d/c tomorrow; Baby in NICU doing well. Arash Vail, DO
[2018-10-01 14:00] VITALS: BP 119/71
[2018-10-01 18:06] VITALS: BP 118/70
[2018-10-01 21:43] VITALS: BP 129/73
[2018-10-02] MEDS: IBUPROFEN 800 MG TAB PO SCH ×2 (02:11→10:05)
[2018-10-02 06:02] VITALS: BP 124/68
[2018-10-02] MEDS: PRENATAL VITAMINS CHEWABLE TABLET PO SCH (08:03)
[2018-10-02] MEDS ORDERED: COLA100C5 PO (10:08)
[2018-10-02] MEDS ORDERED: IBUP80TA PO (10:08)
--- NOTE | 2018-10-02 10:13 | NUR ---
Discharge Summary Date of admission: 09/28/2018 Date of discharge:, 10/02/2018 Admitting diagnosis: 34+0 weeks gestation. Chronic placental abruption. Discharge diagnosis: Status post repeat low transverse section. Single, liveborn delivered via . Discharge Summary: 27 year-old G3 now P3. She was admitted on 09/28/2018 at, 34+0 weeks EGA with a diagnosis of chronic placental abruption with ongoing bleeding and uterine fundal tenderness.. Patient was already corticosteroid complete upon a dmission. She underwent a delivery on 09/29/2018. The delivery was uncomplicated. The patient's postoperative course was uncomplicated. By postoperative day #3, the patient was meeting all discharge criteria. Her pain was well controlled on oral pain meds. She was ambulating without assistance, voiding spontaneously, tolerating a regular diet, and her lochia/bleeding was minimal. Physical exam on date of discharge: Vitals: normotensive, normal HR, afebrile Heart: regular rate and rhythm with no murmurs, gallops, rubs. Lungs: clear to auscultation bilaterally, no wheezes, crackles, rales, ronchi Abd: soft, non-distended, appropriately tender. Normoactive bowel sounds. Incision: clean, dry, intact without surrounding erythema or induration. Ext: non-edematous, non-tender, negative Eneida's sign bilaterally Assessment/Plan: 27 year-old G3 now P3 status post repeat low transverse delivery on. 09/29/2018 now postoperative day #3. Hemodynamically stable, afebrile, with good pain control. Meeting all discharge criteria. -Routine infectious, fever, pain, and bleeding precautions reviewed -Surgical wound/incisional care / precautions reviewed. -Discharge medications: Percocet, Motrin, Colace. -Outpatient follow up in 1-2 weeks for a routine incision / postoperative check. Dr. Kris Vail, DO, FACOG
== END 2018-10-02 10:30 | disposition home or self-care (01) | DRG 771 ==
LOC: M LDO 10:30 → M LDI 09-29 07:53 → M OBS 09-29 17:29
PROVIDERS: ADMIT Obstetrics & Gynecology; ATTEND Specialist
PROC: 10D00Z1 Extraction of Products of Conception, Low, Open Approach (ICD-10-PCS; principal; 2018-09-29 14:00)
DX: O45.93 Premature separation of placenta, unspecified, third trimester (principal); O60.14X0 Preterm labor third trimester with preterm delivery third trimester, not applicable or unspecified; O34.211 Maternal care for low transverse scar from previous cesarean delivery; Z3A.34 34 weeks gestation of pregnancy; Z37.0 Single live birth

== ENCOUNTER → 2018-11-10 | Outpatient (CLI) | payer OTHER ==
[~2018-11-10] MED LIST changes: +COLA100C5 PO; +IBUP80TA PO; +MACR100C43 PO
[2018-11-10 13:50] LABS: BASO # 0.1 10^3/uL (0.0-0.2); BASO % 1.1 % (0.0-1.0); EOS # 0.3 10^3/uL (0.0-0.50); EOS % 4.9 % (0.0-3.0); HEMATOCRIT 41.6 % (36.0-47.0); HEMOGLOBIN 13.7 g/dl (12.0-15.5); LYMPH # 2.4 10^3/uL (1.5-6.5); LYMPH % 39.6 % (24.0-44.0); MEAN CORPUSCULAR HEMOGLOBIN 29.1 pg (27.0-33.0); MEAN CORPUSCULAR HGB CONC 32.9 g/dl (32.0-36.5); MEAN CORPUSCULAR VOLUME 88.5 fl (80.0-96.0); MONO # 0.5 10^3/uL (0.0-0.8); MONO % 8.3 % (0.0-5.0); NEUTROPHILS # 2.8 10^3/uL (1.8-7.7); NEUTROPHILS % 45.9 % (36.0-66.0); PLATELET COUNT, AUTOMATED 263 10^3/uL (150-450); WHITE BLOOD COUNT 6.1 10^3/uL (4.0-10.0)
[2018-11-10 14:17] LABS: FREE T4 0.92 NG/DL (0.76-1.46); THYROID STIMULATING HORMONE 1.68 uIU/ML (0.358-3.740)
== END ==
LOC: M SMT 10:03
PROVIDERS: ATTEND Physician Assistant
DX: E06.3 Autoimmune thyroiditis (principal)

== ENCOUNTER → 2019-05-18 | Outpatient (CLI) | payer OTHER ==
[2019-05-18 18:46] LABS: FREE T4 0.88 NG/DL (0.76-1.46); THYROID STIMULATING HORMONE 2.86 uIU/ML (0.358-3.740)
== END ==
LOC: M LAB 17:27
PROVIDERS: ATTEND Physician Assistant
DX: E06.3 Autoimmune thyroiditis (principal); Z79.899 Other long term (current) drug therapy